=== PATIENT | female | born 1995 | race Caucasian/White ===

== ENCOUNTER 2025-06-02 14:24 | Outpatient (REF) | payer MEDICAID, SELFPAY ==
--- NOTE | ~2025-06-02 | XR_ITS ---
EXAMINATION: X-ray right elbow X-ray right forearm CLINICAL INFORMATION: Pain COMPARISON: None TECHNIQUE: Forearm 2 views. Elbow 4 views. FINDINGS: Elbow: No acute fracture, dislocation or suspicious bony lesion is identified No significant arthritic change or erosions. No significant joint effusion is seen. No abnormal soft tissue calcification. Forearm: No acute fracture or malalignment. No suspicious lytic or blastic lesion. No abnormal soft tissue calcification. Elbow and wrist joint articulation is maintained. XR/XR elbow RT min 3V IMPRESSION: No radiographic evidence of acute osseous findings. Electronically signed by: Jorje Lama MD 06/02/2025 03:10 PM [facility]
--- NOTE | ~2025-06-02 | XR_ITS ---
EXAMINATION: X-ray right elbow X-ray right forearm CLINICAL INFORMATION: Pain COMPARISON: None TECHNIQUE: Forearm 2 views. Elbow 4 views. FINDINGS: Elbow: No acute fracture, dislocation or suspicious bony lesion is identified No significant arthritic change or erosions. No significant joint effusion is seen. No abnormal soft tissue calcification. Forearm: No acute fracture or malalignment. No suspicious lytic or blastic lesion. No abnormal soft tissue calcification. Elbow and wrist joint articulation is maintained. XR/XR forearm RT 2V IMPRESSION: No radiographic evidence of acute osseous findings. Electronically signed by: Jorje Lama MD 06/02/2025 03:10 PM [facility]
--- OUTSIDE RECORDS SUMMARY | 2025-06-02 14:00 | XMS_ITS | Encounter Summary ---
Author Organization [employer] Address [address] [facility] [address] [place] [address] Care Team Providers Care Office Supervisor Name Role Phone Unavailable Primary Care Provider Unavailabl e Reason for Referral * Imaging (Routine) - Authorized Specialty Diagnoses / Procedures Referred By Contac t Referred To Contact Radiology Diagnoses Right elbow pain Procedures MR Elbow w/o Contrast Right Gabe Boyd MD [address] [place] [address] Phone: tel: fax: [address] [phone] Phone: tel: fax: Referral ID Status Reason Start Date Expiration Date V isits Requested Visits Authorized [id number] Authorized 06/02/2025 06/02/2026 1 1 * Consultation (Routine) - Pending Review Specialty Diagnoses / Procedures Referred By Contac t Referred To Contact Orthopaedic Surgery Diagnoses Arm pain, diffuse, right Gabe Boyd MD [address] [place] [address] Phone: tel: fax: Referral ID Status Reason Start Date Expiration Date Visits Requested Visits Authorized [id number] Pending Review Specialty Services Required 06/02/2026 1 1 * Imaging (Routine) - Authorized Specialty Diagnoses / Procedures Referred By Contac t Referred To Contact Radiology Diagnoses Arm pain, diffuse, right Procedures MRI LOWER ARM / RADIUS ULNA RIGHT WO CONTRAST Gabe Boyd MD [address] [place] [address] Phone: tel: fax: [facility] [address] [place] [phone] Phone: tel: fax: Referral ID Status Reason Start Date Expiration Date V isits Requested Visits Authorized [id number] Authorized 06/02/2025 06/02/2026 1 1 Reason for Visit * Reason Comments Arm Pain Encounter Details Date Type Department Care Team (Late st Contact Info) Description 06/02/2025 2:00 PM EST Office Visit [facility] [address] [place] [address] Gabe Boyd MD [address] [place] [address] Arm pain, diffuse, right (Primary Dx); Right elbow pain Social History Tobacco Use Types Packs/Day Years Used Date Smoking Tobacco: Never Passive Smoke Exposure: Never Smokeless Tobacco: Never Tobacco Cessation:Counseling Given: Not Answered Comments Unknown Sex and Gender Information Value Date Recorded Sex Assigned at Female 06/02/2025 10:07 AM EST Legal Sex Female 2:44 AM EDT Gender Identity Female 06/02/2025 10:07 AM EST Sexual Orientation Straight 06/02/2025 10 :07 AM EST documented as of this encounter Last Filed Vital Signs Vital Sign Reading Time Taken Comments Blood Pressure 126/80 06/02/2025 2:01 PM EST Pulse 73 06/02/2025 2:01 PM EST Temperature 36.8 C (98.2 F) 06/02/2025 2:01 PM EST Respiratory Rate 16 06/02/2025 2:01 PM EST Oxygen Saturation 100% 06/02/2025 2:01 PM EST Inhaled Oxygen Concentration - - Weight 60.3 kg (133 lb) 06/02/2025 2:01 PM EST Height 154.9 cm (5' 1 ) 06/02/2025 2:01 PM EST Body Mass Index 25.13 06/02/2025 2:01 PM EST documented in this encounter Progress Notes * Gabe Oliveros MD - 06/02/2025 2:00 PM EST SUBJECTIVE Nisa Lucas is a 29 y.o. female who presents for Arm Pain. iNsa Lucas, 29 years Right Arm Pain and Swelling - Onset of pain approximately 7 months ago, starting after lifting car seat post- - Pain initially localized right mid forearm, worsened with lifting and pulling motions - Swelling in right arm first noticed about 2 weeks ago - Pain intensity increased over the past 4-5 days, now severe enough to interfere with daily activities (unable to finish paperwork, difficulty lifting baby, unable to drive) - Pain radiates from elbow to pinky, started today - Swelling described as noticeable discrepancy in arm circumference compared to left arm - Pain present at rest, previously only with pressure or certain angles - Applied topical CBD ointment for swelling and inflammation - Taking ibuprofen 400 mg as needed for pain - Denies pain with certain palpation points during self-examination - No prior similar episodes reported HPI Review of Systems Allergies[1] OBJECTIVE Vitals: 06/02/25 1401 BP: 126/80 BP Location: Left arm Patient Position: Sitting BP Cuff Size: Adult Pulse: 73 Resp: 16 Temp: 98.2 ??F (36.8 ??C) TempSrc: Temporal SpO2: 100% Weight: 133 lb (60.3 kg) Height: 5' 1 (1.549 m) Physical Exam Vitals reviewed. Constitutional: Appearance: Normal appearance. HENT: Head: Normocephalic and atraumatic. Right Ear: External ear normal. Left Ear: External ear normal. Nose: Nose normal. Mouth/Throat: Mouth: Mucous membranes are moist. Eyes: Conjunctiva/sclera: Conjunctivae normal. Cardiovascular: Rate and Rhythm: Normal rate. Pulses: Normal pulses. Radial pulses are 2+ on the right side and 2+ on the left side. Pulmonary: Effort: Pulmonary effort is normal. Musculoskeletal: Right shoulder: Normal. Left shoulder: Normal. Right upper arm: Normal. Left upper arm: Normal. Right elbow: Tenderness present. Left elbow: Normal. Right forearm: Swelling and tenderness present. Left forearm: Normal. Right wrist: Normal. Left wrist: Normal. Right hand: Normal. Left hand: Normal. Right lower leg: No edema. Left lower leg: No edema. Skin: General: Skin is warm. Neurological: Mental Status: She is alert. Mental status is at baseline. Assessment/Plan Problem List Items Addressed This Visit Arm pain, diffuse, right - Primary Patient here as a walk in with c/o of Right arm pain, swelling, and possible musculoskeletal injury: - Right arm pain and swelling, possibly due to musculoskeletal injury from repetitive lifting. Differential includes muscle tear, tendon or ligament injury. Discrepancy in arm circumference noted on exam. No redness, no increase in warmth, radial pulses normal, capillary refill normal No definitive diagnosis pending further evaluation. - Ordered x-ray of right arm and elbow. Ordered blood work to assess for inflammation and muscle enzyme levels. Referral placed for MRI of elbow and forearm. Referral to excel specialist. Advised to take ibuprofen up to 800 mg every 8 hours as tolerated. Recommended use of supportive bands for discomfort. Advised to avoid activities that may exacerbate injury. Follow-up appointment scheduledafter completion of testing. Pt already has appointment with PCP 06/22/2024 Relevant Orders XR Elbow 3+ Views Right XR Forearm 2 Views Right MRI LOWER ARM / RADIUS ULNA RIGHT WO CONTRAST Referral to Orthopaedic Surgery CBC auto differential Creatine Kinase, Total Basic Metabolic Panel This note was drafted using Ambient (AI) technology. The patient/patient's guardian has been informed and has consented to the use of this technology: Yes Future Appointments Date Time Provider Department Center 06/22/2025 10:45 AM Julieth Barber MD MEDICINE [facility] [1] Not on File documented in this encounter Miscellaneous Notes * Assessment & Plan Note - Gabe Oliveros MD - 06/02/2025 2:24 PM EST Associated Problem(s): Arm pain, diffuse, right Patient here as a walk in with c/o of Right arm pain, swelling, and possible musculoskeletal injury: - Right arm pain and swelling, possibly due to musculoskeletal injury from repetitive lifting. Differential includes muscle tear, tendon or ligament injury. Discrepancy in arm circumference noted on exam. No redness, no increase in warmth, radial pulses normal, capillary refill normal No definitive diagnosis pending further evaluation. - Ordered x-ray of right arm and elbow. Ordered blood work to assess for inflammation and muscle enzyme levels. Referral placed for MRI of elbow and forearm. Referral to excel specialist. Advised to take ibuprofen up to 800 mg every 8 hours as tolerated. Recommended use of supportive bands for discomfort. Advised to avoid activities that may exacerbate injury. Follow-up appointment scheduledafter completion of testing. Pt already has appointment with PCP 06/22/2024 documented in this encounter Plan of Treatment Upcoming Encounters Date Type Department Care Team (Late st Contact Info) Description 06/22/2025 10:45 AM EST Office Visit [facility] [address] [place] [address] Julieth Barber MD [address] [place], [place] [phone] Scheduled Orders Name Type Priority Associated Diagnoses Orde r Schedule MRI LOWER ARM / RADIUS ULNA RIGHT WO CONTRAST Imaging Routine Arm pain, diffuse, right Expected: 06/02/2025, Expires: 06/02/2026 CBC auto differential Lab Routine Arm pain, diffuse, right Expected: 06/02/2025 (Approximate), Expires: 06/02/2026 Creatine Kinase, Total Lab Routine Arm pain, diffuse, right Expected: 06/02/2025, Expires: 06/02/2026 Basic Metabolic Panel Lab Routine Arm pain, diffuse, right Expected: 06/02/2025 (Approximate), Expires: 06/02/2026 MR Elbow w/o Contrast Right Imaging Routine Right elbow pain Ordered: 06/02/2025 Scheduled Referrals Name Type Priority Associated Diagnoses Order Schedule Referral to Orthopaedic Surgery Outpatient Referral Routine Arm pain, diffuse, right Expected: 06/02/2025 (Approximate), Expires: 06/02/2026 documented as of this encounter Procedures Procedure Name Priority Date/Time Associated Diagnosis Comments XR FOREARM 2 VIEWS RIGHT Routine 06/02/2025 2:50 PM EST Arm pain, diffuse, right XR ELBOW 3+ VIEWS RIGHT Routine 06/02/2025 2:45 PM EST Arm pain, diffuse, right documented in this encounter Results * XR Forearm 2 Views Right (06/02/2025 2:50 PM EST) Anatomical Region Laterality Modality Upper Extremities, Forearm Right Radio graphic Imaging 06/02/2025 2:50 PM EST Narrative 06/02/2025 3:13 PM EST [address] [address] XRay Report Signed Patient: Nisa Lucas MR#: [id number] 6 : 1995 Acct:[id number] Age/Sex: 29 / F ADM Date: 06/02/25 Loc: HO.HHCX Attending Dr: Gabe Stephenson MD Ordering Physician: Gabe Stephenson MD Date of Service: 06/02/25 Procedure(s): XR forearm RT 2V Accession Number(s): [id number] cc: Gabe Stephenson MD Reason for Exam: right arm pain EXAMINATION: X-ray right elbow X-ray right forearm CLINICAL INFORMATION: Pain COMPARISON: None TECHNIQUE: Forearm 2 views. Elbow 4 views. FINDINGS: Elbow: No acute fracture, dislocation or suspicious bony lesion is identified No significant arthritic change or erosions. No significant joint effusion is seen. No abnormal soft tissue calcification. Forearm: No acute fracture or malalignment. No suspicious lytic or blastic lesion. No abnormal soft tissue calcification. Elbow and wrist joint articulation is maintained. XR/XR forearm RT 2V IMPRESSION: No radiographic evidence of acute osseous findings. Electronically signed by: Jorje Lama MD 06/02/2025 03:10 PM EST Dictated By: Jorje Lama MD Signed By: <Electronically signed by Jorje Lama MD in OV> 06/02/25 1510 DD/ 1450 TD/TT: 06/02/25 1450 Gasket Winder: Procedure Note Donotuseinterpreter, Image - 06/02/[address] [place] [address] XRay Report Signed Patient: Nisa LucasMR#: [id number] 6 : 1995Acct:[id number] Age/Sex: 29 / FADM Date: 06/02/25 Loc: HO.HHCX Attending Dr: Gabe Stephenson MD Ordering Physician: Gabe Stephenson MD Date of Service: 06/02/25 Procedure(s): XR forearm RT 2V Accession Number(s): [id number] cc: Gabe Stephenson MD Reason for Exam: right arm pain EXAMINATION: X-ray right elbow X-ray right forearm CLINICAL INFORMATION: Pain COMPARISON: None TECHNIQUE: Forearm 2 views. Elbow 4 views. FINDINGS: Elbow: No acute fracture, dislocation or suspicious bony lesion is identified No significant arthritic change or erosions. No significant joint effusion is seen. No abnormal soft tissue calcification. Forearm: No acute fracture or malalignment. No suspicious lytic or blastic lesion. No abnormal soft tissue calcification. Elbow and wrist joint articulation is maintained. XR/XR forearm RT 2V IMPRESSION: No radiographic evidence of acute osseous findings. Electronically signed by: Jorje Lama MD 06/02/2025 03:10 PM EST Dictated By: Jorje Lama MD Signed By: <Electronically signed by Jorje Lama MD in OV> 06/02/25 1510 DD/ 1450 TD/TT: 06/02/25 1450 Gasket Winder: ABBY us Gabe Oliveros MD IMG XR PROCEDURES Rob jannet Result - Final * XR Elbow 3+ Views Right (06/02/2025 2:45 PM EST) Anatomical Region Laterality Modality Upper Extremities, Elbow Right Radiogr aphic Imaging 06/02/2025 2:45 PM EST Narrative 06/02/2025 3:13 PM EST [address] [address] XRay Report Signed Patient: Nisa Lucas MR#: [id number] 6 : 1995 Acct:[id number] Age/Sex: 29 / F ADM Date: 06/02/25 Loc: RICX Attending Dr: Gabe Stephenson MD Ordering Physician: Gabe Stephenson MD Date of Service: 06/02/25 Procedure(s): XR elbow RT min 3V Accession Number(s): [id number] cc: Gabe Stephenson MD Reason for Exam: right elbow pain EXAMINATION: X-ray right elbow X-ray right forearm CLINICAL INFORMATION: Pain COMPARISON: None TECHNIQUE: Forearm 2 views. Elbow 4 views. FINDINGS: Elbow: No acute fracture, dislocation or suspicious bony lesion is identified No significant arthritic change or erosions. No significant joint effusion is seen. No abnormal soft tissue calcification. Forearm: No acute fracture or malalignment. No suspicious lytic or blastic lesion. No abnormal soft tissue calcification. Elbow and wrist joint articulation is maintained. XR/XR elbow RT min 3V IMPRESSION: No radiographic evidence of acute osseous findings. Electronically signed by: Jorje Lama MD 06/02/2025 03:10 PM [facility] Dictated By: Jorje Lama MD Signed By: <Electronically signed by Jorje Lama MD in OV> 06/02/25 1510 DD/ 1445 TD/TT: 06/02/25 1450 Gasket Winder: Procedure Note Donotuseinterpreter, Image - 06/02/[address] [address] XRay Report Signed Patient: Nisa LucasMR#: [id number] 6 : 1995Acct:[id number] Age/Sex: 29 / FADM Date: 06/02/25 Loc: INDUCX Attending Dr: Gabe Stephenson MD Ordering Physician: Gabe Stephenson MD Date of Service: 06/02/25 Procedure(s): XR elbow RT min 3V Accession Number(s): [id number] cc: Gabe Stephenson MD Reason for Exam: right elbow pain EXAMINATION: X-ray right elbow X-ray right forearm CLINICAL INFORMATION: Pain COMPARISON: None TECHNIQUE: Forearm 2 views. Elbow 4 views. FINDINGS: Elbow: No acute fracture, dislocation or suspicious bony lesion is identified No significant arthritic change or erosions. No significant joint effusion is seen. No abnormal soft tissue calcification. Forearm: No acute fracture or malalignment. No suspicious lytic or blastic lesion. No abnormal soft tissue calcification. Elbow and wrist joint articulation is maintained. XR/XR elbow RT min 3V IMPRESSION: No radiographic evidence of acute osseous findings. Electronically signed by: Jorje Lama MD 06/02/2025 03:10 PM [facility] Dictated By: Jorje Lama MD Signed By: <Electronically signed by Jorje Lama MD in OV> 06/02/25 1510 DD/ 1445 TD/TT: 06/02/25 1450 Gasket Winder: ABBY us Gabe Oliveros MD IMG XR PROCEDURES Rob jannet Result - Final documented in this encounter Visit Diagnoses Diagnosis Arm pain, diffuse, right- Primary Right elbow pain Pain in joint, upper arm documented in this encounter
--- OUTSIDE RECORDS SUMMARY | 2025-06-02 15:44 | XMS_ITS | Encounter Summary ---
Author Organization [employer] Address [address] [facility] [address] [place] [address] Care Team Providers Care Maori Physiotherapist Name Role Phone Unavailable Primary Care Provider Unavailabl e Reason for Visit * Reason Onset Date Comments New Patient 04/30/2025 Encounter Details Date Type Department Care Team (Late st Contact Info) Description 04/30/2025 Telephone [facility] [address] [place] [phone] Gabe Boyd MD [address] [place], [place] [phone] New Patient Social History Tobacco Use Types Packs/Day Years Used Date Smoking Tobacco: Never Assessed Comments Unknown Sex and Gender Information Value Date Recorded Sex Assigned at Female 06/02/2025 10:07 AM EST Legal Sex Female 2:44 AM EDT Gender Identity Female 06/02/2025 10:07 AM EST Sexual Orientation Straight 06/02/2025 10 :07 AM EST documented as of this encounter Miscellaneous Notes * Telephone Encounter - Sung Chang - 04/30/2025 10:19 AM EST TC from caller requesting NEW PATIENT visit . Insurance name: [facility] Location : [facility] Demographic information updated documented in this encounter Plan of Treatment Upcoming Encounters Date Type Department Care Team (Late st Contact Info) Description 06/22/2025 10:45 AM EST Office Visit [facility] [address] [place], [place] [phone] Julieth Barber MD [address] [place], [place] [phone] documented as of this encounter Visit Diagnoses Not on filedocumented in this encounter
--- OUTSIDE RECORDS SUMMARY | 2025-06-02 15:44 | XMS_ITS | Encounter Summary ---
Author Organization [employer] Address [address] [facility] [address] [place] [address] Care Team Providers Care Portfolio Accountant Name Role Phone Unavailable Primary Care Provider Unavailabl e Encounter Details Date Type Department Care Team (Latest Contact Info) Description 06/02/2025 Travel Social History Tobacco Use Types Packs/Day Years Used Date Smoking Tobacco: Never Passive Smoke Exposure: Never Smokeless Tobacco: Never Comments Unknown Sex and Gender Information Value Date Recorded Sex Assigned at Female 06/02/2025 10:07 AM EST Legal Sex Female 2:44 AM EDT Gender Identity Female 06/02/2025 10:07 AM EST Sexual Orientation Straight 06/02/2025 10 :07 AM EST documented as of this encounter Plan of Treatment Upcoming Encounters Date Type Department Care Team (Late st Contact Info) Description 06/22/2025 10:45 AM EST Office Visit [facility] [address] [place] [address] Julieth aBrber MD [address] [place] [address] documented as of this encounter Visit Diagnoses Not on filedocumented in this encounter
--- OUTSIDE RECORDS SUMMARY | 2025-06-02 15:44 | XMS_ITS | Clinical Summary ---
Author Organization [facility] Address [address] [place] [phone] Phone Care Team Providers Care Septic Tank Setter Name Role Phone [facility] Primary Care Provider Allergies Active Allergy Reactions Criticality Noted Date Comments Clindamycin Hcl 04/28/2025 Medications benzonatate (TESSALON) 100 MG capsule Take 1 capsule (100 mg total) by mouth 3 (three) times a day as needed for cough. 21 capsule 04/28/2025 05/05/20 25 Active Problems No known active problems Encounters Date Type Department Care Team Description 04/28/2025 9:40 AM EST Office Visit [facility] at [address] [address] Corie Lombardi CNP Acute cough (Primary Dx); Sore throat; Nasal congestion from Last 3 Months Social History Tobacco Use Types Packs/Day Years Used Date Smoking Tobacco: Every Day Cigarettes Smokeless Tobacco: Never Tobacco Cessation:Ready to Q uit: Not Asked; Counseling Given: Not Answered Education Answer Date Recorded Are you interested in more education? Not on irina e 12/08/2024 Are you concerned about learning? Not on file 12/08/2024 No 12/08/2024 No 12/08/2024 Digital Access Answer Date Recorded No 12/08/2024 No 12/08/2024 Reliable internet access at home? Not on file 12/08/2024 Device with a working camera? Not on file Comments Unknown Sex and Gender Information Value Date Recorded Sex Assigned at Not on file Legal Sex Female 1:19 PM EDT Gender Identity Not on file Sexual Orientation Not on file Last Filed Vital Signs Vital Sign Reading Time Taken Comments Blood Pressure 113/75 04/28/2025 9:50 AM EST Pulse 71 04/28/2025 9:50 AM EST Temperature 36.6 C (97.8 F) 04/28/2025 9:50 AM EST Respiratory Rate 16 04/28/2025 9:50 AM EST Oxygen Saturation 99% 04/28/2025 9:5 0 AM EST Inhaled Oxygen Concentration - - Weight 61.2 kg (135 lb) 04/28/2025 9:50 AM EST patient reported Height 154.9 cm (5' 1 ) 04/28/2025 9:50 AM EST patient reported Body Mass Index 25.51 04/28/2025 9:50 AM EST Plan of Treatment Health Maintenance Due Date Last Done Comments Adult Td,Tdap Booster 1994 DEPRESSION SCREENING 2006 SMOKING Hx and SMOKELESS TOB ACCO SCREENING 2007 HEPATITIS C SCREENING 2012 HIV ONE-TIME SCREENING (18-6 5 YEARS) 2012 PNEUMOCOCCAL VACCINES (0-49 years) (1 of 2 - PCV) 2013 PAP SMEAR 2015 INFLUENZA VACCINE (#1) 2025 COVID-19 VACCINE ( - 2024-2 6 season) 2025 HEPATITIS A VACCINES Aged Out No long er eligible based on patient's age to complete this topic HIB VACCINES Aged Out No longer eligi ble based on patient's age to complete this topic MENINGOCOCCAL VACCINES (ACWY) Aged Out No longer eligible based on patient's age to complete this topic MENINGOCOCCAL VACCINES (B) Aged Out N o longer eligible based on patient's age to complete this topic Medical Devices Not on file Procedures Procedure Name Priority Date/Time Associated Diagnosis Comments POCT SARS-COV-2, INFLUENZA A/B, RSV, PCR Routine 04/28/2025 9:54 AM EST POCT GROUP A STREPTOCOCCUS, PCR Routine 04/28/2025 9:53 AM EST from Last 3 Months Results * POCT SARS-CoV-2, Influenza A/B, RSV, PCR (04/28/2025 9:54 AM EST) Pathologist [facility] SARS-Cov-2 PCR Negative Negative 04/28/2025 10:35 AM EST [facility] Influenza A Negative Negative 04/28/2025 10:35 AM EST [facility] Influenza B Negative Negative 04/28/2025 10:35 AM EST [facility] RSV PCR Negative Negative 04/28/2025 10:35 AM EST [facility] Swab (Anterior Nares) 04/28/2025 9:54 AM EST 04/28/2025 10:35 AM EST Corie Lombardi CNP LAB POCT DOCKED DEVICE UNSO LICTED RESULTS Final Result [facility] [address] [address], [facility] [phone] * POCT Group A Streptococcus, PCR (04/28/2025 9:53 AM EST) Pathologist [facility] Strep A, PCR Not Detected Not Detected 04/28/20 10:21 AM EST [facility] Swab (Throat) 04/28/2025 9:5 3 AM EST 04/28/2025 10:21 AM EST Corie Lombardi JOB COACH LAB POCT DOCKED DEVICE UNSO LICTED RESULTS Final Result [facility] [address] [address], [facility] [phone] from Last [address] [address] [place] [address] [place] [address] [place] [place] [address] C3 ACO [facility] C3 [facility]CO [facility] C3 ACO Care Teams Septic Tank Setter Relationship Specialty Start Date End Date [facility] [address] [place] [phone] PCP - General 04/28/25 Additional Source Comments The information contained in this document represents components of the legal health record. It is not the complete legal health record.[facility]
--- OUTSIDE RECORDS SUMMARY | 2025-06-02 15:44 | XMS_ITS | Clinical Summary ---
Author Organization [facility] Address [address] [place] [address] Care Team Providers Care Product Communications Manager Name Role Phone Unavailable Primary Care Provider Unavailabl e Active Problems Problem Noted Date Diagnosed Date Arm pain, diffuse, right 06/02/2025 Assessment & Plan (06/02/2025 2:24 PM EST): Patient here as a walk in with [...] MRI of elbow and forearm. Referral to culinary specialist. Advised to take ibuprofen up to 800 mg every 8 hours as tolerated. Recommended use of supportive bands for discomfort. Advised to avoid activities that may exacerbate injury. Follow-up appointment scheduled after completion of testing. Pt already has appointment with PCP 06/22/2024 Encounters Date Type Department Care Team Description 06/02/2025 2:00 PM EST Office Visit [facility] [address] [place] [address] Gabe Boyd MD Arm pain, diffuse, right (Primary Dx); Right elbow pain 06/02/2025 Travel 04/30/2025 Telephone [facility] [address] [place] [address] Gabe Boyd MD New Patient from Last 3 Months Social History Tobacco [...] Orientation Straight 06/02/2025 10 :07 AM EST Last Filed Vital Signs Vital Sign Reading [...] Mass Index 25.13 06/02/2025 2:01 PM EST Plan of Treatment Upcoming Encounters Date Type Department Care Team (Late st Contact Info) Description 06/22/2025 10:45 AM EST Office Visit [facility] [address] [place] [address] Julieth Barber MD [address] [place] [address] Health Maintenance Due Date Last Done Comments Depression Screening 1994 HIV Screening 1994 SDOH Screening 1994 Disability Screening 1994 Alcohol/Substance Use Screening 2006 Family Planning (PISQ) 2009 HPV Vaccines (1 - 3-dose series) 2009 Hepatitis C Screening 2012 DTaP/Tdap/Td Vaccines (1 - Tdap) 2013 Hepatitis B Vaccines (1 of 3 - 19+ 3-dose series) 2013 Pap Smear 2015 Cervical Cancer Screening 2024 HPV/Cotest 2024 COVID-19 Vaccine (1 - 2024-2 6 season) 2025 Influenza Vaccine (#1) 2025 Tobacco Screening 06/02/2026 06/02/2025 Zoster Vaccines (1 of 2) 2044 RSV Patients and Pa tients Aged 60 years or older (1 - 1-dose 75+ series) 2069 HIB Vaccines Aged Out No longer eligi ble based on patient's age to complete this topic Hepatitis A Vaccines Aged Out No long er eligible based on patient's age to complete this topic IPV Vaccines Aged Out No longer eligi ble based on patient's age to complete this topic Meningococcal B Vaccine Aged Out No l onger eligible based on patient's age to complete this topic Meningococcal Vaccine Aged Out No kiera ovi eligible based on patient's age to complete this topic Pneumococcal Vaccine: Pediat rics (0 to 5 Years) and At-Risk Patients (6 to 49) Years Aged Out No longer eligi ble based on patient's age to complete this topic RSV under 20 months Aged Out No longe r eligible based on patient's age to complete this topic Rotavirus Vaccines Aged Out No longer eligible based on patient's age to complete this topic Procedures Procedure Name Priority Date/Time Associated Diagnosis Comments XR FOREARM 2 VIEWS RIGHT Routine 06/02/2025 2:50 PM EST Arm pain, diffuse, right XR ELBOW 3+ VIEWS RIGHT Routine 06/02/2025 2:45 PM EST Arm pain, diffuse, right from Last 3 Months Results * XR Forearm 2 Views Right (06/02/2025 2:50 PM EST) Anatomical Region Laterality Modality Upper Extremities, Forearm Right Radio graphic Imaging 06/02/2025 2:50 PM EST Narrative 06/02/2025 3:13 PM EST [address] [address] XRay Report Signed Patient: Nisa Lucas MR#: [id number] 6 : 1995 Acct:[id number] Age/Sex: 29 / F ADM Date: 06/02/25 Loc: HO.HHCX Attending Dr: Gabe Stephenson MD Ordering Physician: Gabe Stephenson MD Date of Service: 06/02/25 Procedure(s): XR forearm RT 2V Accession Number(s): [id number] cc: Gabe Stephenson MD Reason for Exam: [...] by: Jorje Lama MD 06/02/2025 03:10 PM [facility] Dictated By: Jorje Lama MD Signed By: <Electronically signed by Jorje Lama MD in OV> 06/02/25 1510 DD/ 1450 TD/TT: 06/02/25 1450 Spanish Lecturer: ABBY Procedure Note Donotuseinterpreter, Image - 06/02/2025 [place] [address] XRay Report Signed Patient: Nisa LucasMR#: [id number] 6 : 1995Acct:[id number] Age/Sex: 29 / FADM Date: 06/02/25 Loc: HO.HHCX Attending Dr: Gabe Stephenson MD Ordering Physician: Gabe Stephenson MD Date of Service: 06/02/25 Procedure(s): XR forearm RT 2V Accession Number(s): [id number] cc: Gabe Stephenson MD Reason for Exam: [...] Jorje Lama MD 06/02/2025 03:10 PM EST RP Dictated By: Jorje Lama MD Signed By: <Electronically signed by Jorje Lama MD in OV> 06/02/25 1510 DD/ 1450 TD/TT: 06/02/25 1450 Spanish Lecturer: ABBY us Gabe Oliveros MD IMG XR PROCEDURES Rob jannet Result - Final * XR Elbow 3+ Views Right (06/02/2025 2:45 PM EST) Anatomical Region Laterality Modality Upper Extremities, Elbow Right Radiogr aphic Imaging 06/02/2025 2:45 PM EST Narrative 06/02/2025 3:13 PM EST [address] [address] XRay Report Signed Patient: Nisa Lucas MR#: [id number] 6 : 1995 Acct:[id number] Age/Sex: 29 / F ADM Date: 06/02/25 Loc: HO.HHCX Attending Dr: Gabe Stephenson MD Ordering Physician: Gabe Stephenson MD Date of Service: 06/02/25 Procedure(s): XR elbow RT min 3V Accession Number(s): [id number] cc: Gabe Stephenson MD Reason for Exam: [...] Jorje Lama MD 06/02/2025 03:10 PM EST RP Dictated By: Jorje Lama MD Signed By: <Electronically signed by Jorje Lama MD in OV> 06/02/25 1510 DD/ 1445 TD/TT: 06/02/25 1450 Spanish Lecturer: ABBY Procedure Note Donotuseinterpreter, Image - 06/02/[address] [address] XRay Report Signed Patient: Nisa LucasMR#: [id number] 6 : 1995Acct:[id number] Age/Sex: 29 / FADM Date: 06/02/25 Loc: .HHCX Attending Dr: Gabe Stephenson MD Ordering Physician: Gabe Stephenson MD Date of Service: 06/02/25 Procedure(s): XR elbow RT min 3V Accession Number(s): [id number] cc: Gabe Stephenson MD Reason for Exam: [...] Jorje Lama MD 06/02/2025 03:10 PM EST RP Dictated By: Jorje Lama MD Signed By: <Electronically signed by Jorje Lama MD in OV> 06/02/25 1510 DD/ 1445 TD/TT: 06/02/25 1450 Spanish Lecturer: ABBY us Gabe Oliveros MD IMG XR PROCEDURES Rob jannet Result - Final from Last 3 Months Insurance [facility] C[facility]
== END 2025-06-02 14:25 ==
LOC: HO.HHCX 14:24
PROVIDERS: PCP Internal Medicine; Visit Provider Internal Medicine
DX: M79.601 Pain in right arm (principal); M25.521 Pain in right elbow
CPT/HCPCS: 73080; 73090

== ENCOUNTER → 2025-06-02 14:31 | Outpatient (BNV) | payer MEDICAID, SELFPAY | PROVIDERS: PCP Internal Medicine; Visit Provider Radiology Diagnostic Ultrasound | DX: M25.521 Pain in right elbow (principal); M79.631 Pain in right forearm | CPT/HCPCS: 73080; 73090 ==